=== PATIENT | male | born 1960 | race American Indian/Alaskan Native ===

== ENCOUNTER 2016-12-16 10:26 | Day surgery (SDC) | payer MEDICARE ==
[2016-12-08 11:13] VITALS: BMI 32.1
[2016-12-16] MEDS ORDERED: Propofol 10 mg/ml Inj (20 ML) ONE (12:54)
[2016-12-16] MEDS ORDERED: Midazolam 2 MG/2 ML VIAL ONE (12:55)
[2016-12-16] MEDS ORDERED: Lidocaine 1% Inj (20ml) ONE (12:55)
[2016-12-16] MEDS ORDERED: Sodium Chloride 0.9% 1,000 ML IV SCH (14:00)
[2016-12-16 14:50] VITALS: RESP 18; TEMP 98.2
[2016-12-16 15:04] VITALS: PULSE 93; O2SAT 99
[2016-12-16 15:07] VITALS: BP 121/76
== END 2016-12-16 15:47 | disposition home or self-care (01) ==
LOC: ENDO 10:26
PROVIDERS: ATTEND Internal Medicine Gastroenterology
DX: Z12.11 Encounter for screening for malignant neoplasm of colon (principal); D12.5 Benign neoplasm of sigmoid colon; D12.3 Benign neoplasm of transverse colon; K64.8 Other hemorrhoids; B20 Human immunodeficiency virus [HIV] disease; Z88.0 Allergy status to penicillin
CPT/HCPCS: 45380; 45381; 45385; 88305; J2250; J2704; J3010; J7040 ×2